=== PATIENT | female | born 2000 | race African-American/Black ===

== ENCOUNTER 2018-12-19 11:40 | Emergency (ER) | payer SELFPAY ==
[2018-12-19 12:19] VITALS: BP 127/78
[2018-12-19] MEDS ORDERED: Albuterol 2.5 MG/3 ML NEB.SOL* (0.083%) INH ONE (12:42)
--- NOTE | 2018-12-19 12:42 | UC ---
UC General HPI - HPI Summary HPI Summary: PT ILL X 1 WEEK. BEGAN WITH FEVER AND CHILLS PLUS COUGH. HAS ONGOING COUGH, SOME WHEEZING AND COLES. ALSO NOTES TONSILS LOOK BIG AND HAS A SWOLLEN LYMPH NODE BEHIND HER L EAR. HX CHILDHOOD ASTHMA. - History of Current Complaint Chief Complaint: UCGeneralIllness Stated Complaint: COUGH Time Seen by Provider: 12/19/18 12:36 Hx Obtained From: Patient Hx Last Menstrual Period: October 30 Onset/Duration: Gradual Onset Timing: Constant Pain Intensity: 0 Associated Signs & Symptoms: Negative: Chest Pain - Allergy/Home Medications Allergies/Adverse Reactions: Allergies Allergy/AdvReac Type Severity Reaction Status Date / Time No Known Allergies Allergy Verified 12/19/18 12:19 PMH/Surg Hx/FS Hx/Imm Hx Respiratory History: Asthma - CHILDHOOD - Surgical History Surgical History: None - Family History Known Family History: Positive: Non-Contributory - Social History Occupation: Student Alcohol Use: None Substance Use Type: Marijuana Substance Use Comment - Amount & Last Used: last night Smoking Status (MU): Never Smoked Tobacco - Immunization History Vaccination Up to Date: Yes Review of Systems All Other Systems Reviewed And Are Negative: Yes Constitutional: Positive: Fever, Chills Skin: Positive: Other - NODE BEHIND L EAR IS SWOLLEN ENT: Positive: Sore Throat - FEELS "WIERD" Respiratory: Positive: Shortness Of Breath, Cough Cardiovascular: Negative: Palpitations, Chest Pain Physical Exam Triage Information Reviewed: Yes Appearance: Well-Appearing Vital Signs: Initial Vital Signs Temp 97.9 F 12/19/18 12:12 Pulse 74 12/19/18 12:12 Resp 18 12/19/18 12:12 BP 127/78 12/19/18 12:12 Pulse Ox 97 12/19/18 12:12 Vital Signs Reviewed: Yes Eyes: Positive: Conjunctiva Clear ENT: Positive: Pharynx normal, TMs normal, Uvula midline - L posterior auricular adenopathy. no skin lesions or conjunctivitis., Other. Negative: Nasal drainage, Tonsillar swelling, Tonsillar exudate, Trismus, Muffled voice, Hoarse voice Neck: Positive: Supple, Nontender, No Lymphadenopathy Respiratory: Positive: No respiratory distress, Decreased breath sounds, Other: - bronchospastic congested cough Cardiovascular: Positive: RRR, No Murmur Abdomen Description: Positive: Nontender, No Organomegaly, Soft. Negative: Splenomegaly Bowel Sounds: Positive: Present Musculoskeletal: Positive: ROM Intact Neurological: Positive: Alert Psychological: Positive: Age Appropriate Behavior Skin Exam: Normal, Other - no cervical, additional auricular, epitrochlear or inguinal adenopathy. Diagnostics - Radiology No standard instances Radiology Interpretation Completed By: Radiologist - nad Re-Evaluation - Re-Evaluation First Eval Re-Evaluation Time: 13:27 Change: Improved - better aeration. pt notes breathing is easier. Course/Dx - Differential Dx - Multi-Symptom Differential Diagnoses: Other - cxr=nad. hx and PE c/w reactive airways plus pt has hx asthma thus will tx for that. need for close f/u to ensure the L auricular adenopathy resolves was stressed. - Diagnoses Provider Diagnosis: Posterior auricular lymphadenopathy, Reactive airway disease Discharge - Sign-Out/Discharge Documenting (check all that apply): Patient Departure All imaging exams completed and their final reports reviewed: Yes - Discharge Plan Condition: Stable Disposition: HOME Prescriptions: Albuterol HFA INHALER* [Ventolin HFA Inhaler*] 2 puff INH Q6H #1 mdi Azithromycin 200/5 SUSP(NF) [Zithromax 200 mg/5 ml SUSP(NF)] 500 mg PO DAILY 5 Days #36.5 ml PrednisoLONE 3 MG/ML ORAL.SOLU [PrednisoLONE 3 MG/ML 5 ml ORAL.SOLUTION*] 30 mg PO DAILY 5 Days #50 ml Patient Education Materials: Asthma (ED), Lymphadenopathy (ED) Referrals: [facility] [Z.BUSINESS, APPLICATION, OTHER] - 3 Days Additional Instructions: FOLLOW UP TO ENSURE THE SWOLLEN LYMPH NODE RESOLVES - Billing Disposition and Condition Condition: STABLE Disposition: Home - Attestation Statements Provider Attestation: I was available for consult. This patient was seen by the GARY. The patient was not presented to , seen by or examined by -Marva Blum MD
== END 2018-12-19 13:47 | disposition home or self-care (01) ==
LOC: UCCORT 11:40
DX: R59.0 Localized enlarged lymph nodes (principal); J45.909 Unspecified asthma, uncomplicated
CPT/HCPCS: 71046; 99202; G0463